=== PATIENT | female | born 1950 | race Caucasian/White ===

== ENCOUNTER → 2022-12-24 09:16 | Outpatient (CLI) | payer MEDICARE, SELFPAY ==
--- NOTE | 2022-12-24 | DI.ECHO.S_ITS ---
[facility]---------+ [facility] +---------+ : : [address] : : : [place] : : : : [id number] : : : : Phone: [phone] : [phone] +[phone]+ Echocardiogram Report + + :Name: VITA VALADEZ I Study Date: 12/24/2022 Height: 65 in : :[facility] ReadingLocation: Weight: 198 lb : : Gender: Female BSA: 2.0 m2 : :: 1950 Age: 72 yrs BP: 173/93 mmHg: :Reason For Study: Pericardial Effusion : :Ordering Physician: Luisana, : :Jason Performed By: Diana Payan : :Referring: JASON LIEBERMAN : + + Interpretation Summary Limited Echo: There is a trivial to small pericardial effusion noted. Procedure: A two-dimensional transthoracic echocardiogram with color flow and Doppler was performed in limited views only. The study quality was technically adequate. There is no prior echocardiogram noted for this patient. The patient was in normal sinus rhythm during the exam. Left Ventricle: The left ventricle is normal in size. The ejection fraction is estimated to be 50-55%. Tricuspid Valve: The tricuspid valve is normal. There is no tricuspid stenosis. There is trace tricuspid regurgitation. The right ventricular systolic pressure is estimated to be at least 16 mmHg based on an estimated right atrial pressure of 3 mm Hg. Great Vessels: The IVC is of normal diameter and collapses greater than 50% with a sniff. This suggests a low right atrial pressure of 3 mm Hg. Pericardium/ Pleura There is a trivial to small pericardial effusion noted. MMode/2D Measurements & Calculations LVLs ap4: 6.5 cm LVLd ap2: 6.9 cm LVLs ap2: 6.2 cm Doppler Measurements & Calculations TR max maggy: 182.3 cm/sec TR max P.3 mmHg Reading Physician:12:20 PM
== END ==
PROVIDERS: PCP Physician Assistant Medical; Referring Provider Internal Medicine Cardiovascular Disease; Visit Provider Internal Medicine Cardiovascular Disease
DX: I31.39 Other pericardial effusion (noninflammatory) (principal); R55 Syncope and collapse
CPT/HCPCS: 93307

== ENCOUNTER → 2023-10-11 12:53 | Outpatient (CLI) | payer MEDICARE, SELFPAY ==
--- NOTE | 2023-10-11 12:54 | DI.MRI.S_ITS ---
BREAST MRI OF BOTH BREASTS: 10/11/2023 CLINICAL: Left breast cancer. PROCEDURE: MR BREAST BI WO/W CON INDICATIONS: Malignant neoplasm of unspecified site of left fem TECHNIQUE: The patient was placed prone in a dedicated breast imaging coil. Precontrast axial STIR and 3D FLASH without fat saturation sequences were obtained. Both before and after bolus injection of contrast, sequential 1-minute axial 3D FLASH with fat saturation sequences for 3 time points, with subtraction images and maximum intensity projections (MIP's) generated. Delayed sagittal FLASH images with fat saturation were also obtained. Computer-aided detection, including computer algorithm analysis of MRI image data for lesion detection and characterization, pharmacokinetic analysis, with further physician review for interpretation, was performed. COMPARISON: None. FINDINGS: Image quality: Excellent. There is minimal background parenchymal enhancement. Right breast: No suspicious foci of enhancement or mass lesions in the right breast. Left breast: There is a 1.1 x 1.2 x 1.0 cm enhancing mass within the left breast at 5 o'clock at a middle depth which corresponds with the biopsy-proven neoplasm. There is a 0.5 x 0.5 x 0.4 enhancing mass within the left breast at 12 o'clock at a middle depth (series 10/image 71 and series 18/image 74). No other suspicious foci of enhancement or suspicious mass lesions in the left breast. Miscellaneous: No axillary adenopathy. No intramammary adenopathy. Limited visualization of the heart, lungs, mediastinum and upper abdomen is unremarkable. IMPRESSION: INCOMPLETE: NEEDS ADDITIONAL IMAGING EVALUATION 1. Biopsy-proven neoplasm within the lower outer quadrant of the left breast as above. 2. Focal enhancing lesion within the left breast at 12 o'clock which may represent multicentric disease. Second-look ultrasound recommended to further characterize this finding. 3. No findings to suggest contralateral disease or yesi disease. This exam was interpreted at Station ID: [id number] Electronically Signed By: Emerita pope/:10/11/2023 14:45:00 Entry: - 10/15/2023 12:48:50 letter sent: Additional Imaging Needed ACR BI-RADS Category 0: Incomplete [id number]
== END ==
LOC: MRI 12:53
PROVIDERS: PCP Physician Assistant Medical; Referring Provider Physician Assistant Medical; Visit Provider Physician Assistant Medical
DX: R92.8 Other abnormal and inconclusive findings on diagnostic imaging of breast (principal); C50.512 Malignant neoplasm of lower-outer quadrant of left female breast; N63.25 Unspecified lump in the left breast, overlapping quadrants
CPT/HCPCS: 77049; A9579

== ENCOUNTER → 2024-01-13 12:02 | Outpatient (CLI) | payer MEDICARE, SELFPAY ==
--- NOTE | 2024-01-13 12:03 | DI.ECHO.S_ITS ---
[facility] +---------+ [facility] : : [address] : : [place] : : [id number] : : Phone: [phone] Echocardiogram Report + + :Name: VITA VALADEZ I Study Date: 01/13/2024 Height: 65 in : :Hospital ReadingLocation: Weight: 210 lb : : Gender: Female BSA: 2.0 m2 : :: 1950 Age: 73 yrs BP: 137/84 mmHg: :Reason For Study: PERICARDIAL EFFUSION : :Ordering Physician: TAYLA, : :JASON Performed By: Maureen Monroy : :Referring: JASON LIEBERMAN : + + Interpretation Summary Limited Echo: There is an anterior echo-free space consistent with a fat pad. There is no pericardial effusion. Procedure: Images were not obtained from all of the standard acoustic windows due to the limited scope of the study. The study quality was technically adequate. Comparison is made with the echocardiogram of 12/24/2022. Left Ventricle: The left ventricle is normal in size and wall thickness. The ejection fraction is estimated to be 60-65%. Great Vessels: The IVC is of normal diameter and collapses greater than 50% with a sniff. This suggests a low right atrial pressure of 3 mm Hg. Pericardium/ Pleura There is an anterior echo-free space consistent with a fat pad. There is no pericardial effusion. There is no pleural effusion. MMode/2D Measurements & Calculations LVIDd: 4.7 cm IVC diam: 1.1 cm LVIDs: 2.9 cm FS: 38.8 % IVSd: 0.94 cm LVPWd: 0.94 cm LV ocampo. diameter/BSA (cm/m^2): 2.3 LV sys. diameter/BSA (cm/m^2): 1.4 Reading Physician:10:58 AM
== END ==
PROVIDERS: PCP Physician Assistant Medical; Referring Provider Internal Medicine Cardiovascular Disease; Visit Provider Internal Medicine Cardiovascular Disease
DX: I31.39 Other pericardial effusion (noninflammatory) (principal)
CPT/HCPCS: 93307